=== PATIENT | male | born 2005 | race Hispanic/Latino ===

== ENCOUNTER 2023-12-11 07:03 | Emergency (ER) | payer MEDICAID ==
[2023-12-11] MEDS: Sodium Chloride 0.9% 1,000 ML IV SCH (07:53)
[2023-12-11] MEDS: HYDROmorphone 0.5 MG/0.5 ML Syringe IVPUSH ONE (07:53)
[2023-12-11] MEDS: Famotidine 20 MG/2 ML SDV IVPUSH ONE (07:53)
[2023-12-11] MEDS: Ondansetron 4 MG/2 ML SDV IVPUSH ONE (07:53)
[2023-12-11] MEDS: Sodium Chloride 0.9% 10 ML Syringe FLUSH PRN (07:54)
[2023-12-11 08:01] LABS: BASOPHILS ABSOLUTE AUTO 0.1 K/mm3 (0.0-0.3); BASOPHILS PERCENT AUTO 0.3 % (0.0-1.0); EOSINOPHILS PERCENT AUTO 0.1 % (0.0-5.0); HEMATOCRIT 47.5 % (42.0-52.0); HEMOGLOBIN 15.8 gm/dl (14.0-18.0); IMMATURE GRAN ABSOLUTE AUTO 0.07 K/mm3 (0.00-0.05); IMMATURE GRAN PERCENT AUTO 0.4 % (0.0-0.4); LYMPHOCYTES ABSOLUTE AUTO 0.9 K/mm3 (2.0-8.8); LYMPHOCYTES PERCENT AUTO 5.5 % (50.0-65.0); MEAN CORPUSCULAR HEMOGLOBIN 27.6 pg (28.0-32.0); MEAN CORPUSCULAR HGB CONC 33.3 g/dl (32.0-36.0); MEAN CORPUSCULAR VOLUME 82.9 fl (83.0-99.0); MEAN PLATELET VOLUME 8.8 fl (9.4-12.4); MONOCYTES ABSOLUTE AUTO 0.6 K/mm3 (0.1-1.4); MONOCYTES PERCENT AUTO 3.2 % (2.0-10.0); NEUTROPHILS ABSOLUTE AUTO 15.6 K/mm3 (1.5-8.5); NEUTROPHILS PERCENT AUTO 90.5 % (35.0-45.0); PLATELET COUNT,PLT 354 K/mm3 (150-400); RED BLOOD CELL COUNT 5.73 M/mm3 (4.52-5.90); WHITE BLOOD CELL COUNT,WBC 17.19 K/mm3 (4.5-13.5)
[2023-12-11 08:29] LABS: INR 1.01; PROTHROMBIN TIME 10.8 SECONDS (9.7-12.0)
[2023-12-11 08:30] LABS: PTT,PARTIAL THROMBOPLSTIN TIME 26.2 SECONDS (21.7-31.4)
[2023-12-11 08:34] LABS: A/G RATIO 1.2 (1-2); ANION GAP 13.4 (5-15); BILIRUBIN TOTAL 1.1 mg/dL (0.2-1.0); BUN/CREATININE RATIO 6.4 (14-18); CREATININE 1.4 mg/dL (0.7-1.3); EST CRCL DRUG DOSING (CG) 98.67 mL/min; POTASSIUM,K 3.4 mEq/L (3.5-5.1); PROTEIN TOTAL,TP 7.3 g/dl (6.4-8.2)
[2023-12-11 08:37] LABS: SLIDE REVIEW ABNORMAL SMEAR
[2023-12-11] MEDS: Iopamidol 612 MG/ML 30 ML SDV IVPUSH ONE (09:39)
[2023-12-11] MEDS: cefTRIAXone 2 GM in Sodium Chloride 0.9% 100 ML IV ONE (10:04)
== END 2023-12-11 12:26 | disposition home or self-care (01) ==
LOC: JD.ED 07:03
DX: J18.9 Pneumonia, unspecified organism (principal); K85.80 Other acute pancreatitis without necrosis or infection; R11.2 Nausea with vomiting, unspecified; F17.210 Nicotine dependence, cigarettes, uncomplicated; Z86.16 Personal history of COVID-19; Z79.899 Other long term (current) drug therapy
CPT/HCPCS: 36415; 71045; 74177; 80053; 83690; 84484; 85025; 85610; 85730; 93005; 96361; 96365; 96375; 99285; J0696; J1170; J2405; J3490; J7030; Q9967; 93010; 99284

== ENCOUNTER 2023-12-13 07:58 | Emergency (ER) | payer SELFPAY | END 2023-12-13 09:11 | disposition home or self-care (01) | LOC: JD.ED 07:58 | DX: J18.9 Pneumonia, unspecified organism (principal); Z86.16 Personal history of COVID-19 | CPT/HCPCS: 99284 ==

== ENCOUNTER 2024-08-12 16:55 | Emergency (ER) | payer MEDICAID ==
[2024-08-12 18:46] LABS: BASOPHILS ABSOLUTE AUTO 0.1 K/mm3 (0.0-0.2); BASOPHILS PERCENT AUTO 0.5 % (0.0-1.0); EOSINOPHILS ABSOLUTE AUTO 0.3 K/mm3 (0.0-0.4); EOSINOPHILS PERCENT AUTO 2.1 % (0.0-6.0); HEMATOCRIT 46.8 % (42.0-52.0); HEMOGLOBIN 15.8 gm/dl (14.0-18.0); IMMATURE GRAN ABSOLUTE AUTO 0.11 K/mm3 (0.00-0.05); IMMATURE GRAN PERCENT AUTO 0.7 % (0.0-0.4); LYMPHOCYTES ABSOLUTE AUTO 0.9 K/mm3 (1.0-4.8); LYMPHOCYTES PERCENT AUTO 5.9 % (24.0-44.0); MEAN CORPUSCULAR HEMOGLOBIN 27.8 pg (28.0-32.0); MEAN CORPUSCULAR HGB CONC 33.8 g/dl (32.0-36.0); MEAN CORPUSCULAR VOLUME 82.2 fl (83.0-99.0); MEAN PLATELET VOLUME 8.2 fl (9.4-12.4); MONOCYTES ABSOLUTE AUTO 0.8 K/mm3 (0.0-0.8); MONOCYTES PERCENT AUTO 5.2 % (0.0-8.0); NEUTROPHILS ABSOLUTE AUTO 12.8 K/mm3 (1.8-7.7); NEUTROPHILS PERCENT AUTO 85.6 % (41.0-71.0); PLATELET COUNT,PLT 369 K/mm3 (150-400); RED BLOOD CELL COUNT 5.69 M/mm3 (4.52-5.90); WHITE BLOOD CELL COUNT,WBC 14.98 K/mm3 (3.9-11.3)
[2024-08-12 19:12] LABS: ANION GAP 15.5 (5-15); BILIRUBIN TOTAL 0.6 mg/dL (0.2-1.0); BUN/CREATININE RATIO 6.7 (14-18); CALCIUM 9.5 mg/dL (8.5-10.1); CREATININE 1.2 mg/dL (0.7-1.3); EST CRCL DRUG DOSING (CG) 110.97 mL/min; POTASSIUM,K 3.5 mEq/L (3.5-5.1)
[2024-08-12] MEDS: Sodium Chloride 0.9% 1,000 ML IV ONE (19:22)
[2024-08-12] MEDS: Ketorolac 30 MG/ML SDV IVPUSH ONE (20:15)
[2024-08-12] MEDS: Ondansetron 4 MG/2 ML SDV IVPUSH ONE (20:15)
[2024-08-12] MEDS: Azithromycin 250 MG Tab PO ONE (21:31)
== END 2024-08-12 21:37 | disposition home or self-care (01) ==
LOC: JD.ED 16:55
DX: A37.90 Whooping cough, unspecified species without pneumonia (principal); Z86.16 Personal history of COVID-19; Z79.899 Other long term (current) drug therapy
CPT/HCPCS: 36415; 71045; 80053; 82550; 84484; 85025; 87428; 93005; 96361; 96374; 96375; 99285; A9270; J1885; J2405; J7030; 99283

== ENCOUNTER 2024-08-15 14:17 | Emergency (ER) | payer MEDICAID | END 2024-08-15 16:03 | disposition home or self-care (01) | LOC: JD.ED 14:17 | DX: S99.912A Unspecified injury of left ankle, initial encounter (principal); J45.909 Unspecified asthma, uncomplicated; F17.210 Nicotine dependence, cigarettes, uncomplicated; Z79.899 Other long term (current) drug therapy; W10.9XXA Fall (on) (from) unspecified stairs and steps, initial encounter; Y92.019 Unspecified place in single-family (private) house as the place of occurrence of the external cause | CPT/HCPCS: 73610-26-LT; 73610-LT; 99282; 99283 ==

== ENCOUNTER 2025-01-05 20:31 | Emergency (ER) | payer MEDICAID ==
[2025-01-05] MEDS: Lidocaine 1% 10 ML MDV INJECT ONE (22:03)
[2025-01-05] MEDS: Diphtheria,Pertussis(Acell),Tetanus Vaccine 0.5 ML Syringe IM ONE (22:15)
== END 2025-01-05 22:20 | disposition home or self-care (01) ==
LOC: JD.ED 20:31
DX: S61.412A Laceration without foreign body of left hand, initial encounter (principal); Z23 Encounter for immunization; J45.909 Unspecified asthma, uncomplicated; E66.9 Obesity, unspecified; Z68.32 Body mass index [BMI] 32.0-32.9, adult; X58.XXXA Exposure to other specified factors, initial encounter
CPT/HCPCS: 12001; 90471; 90715; 99282; J2003